=== PATIENT | male | born 1955 | race Caucasian/White ===

== ENCOUNTER 2018-09-11 05:59 | Emergency (ER) | payer OTHER ==
[~2018-09-11 05:59] MED LIST changes: -ATOR40TA24 PO; -ESCI10TA8 PO; -ISOS30TA54 PO; -LATA7.5D OU; -METO25TA93 PO; -PANT40TA65 PO; -VALP250C30 PO; -WARF5TAB23 PO
[2018-09-11] MEDS ORDERED: NS(*) 0.9% 1000 ML BAG 1,000 ML IV ONE ×2 (06:14→06:50)
[2018-09-11] MEDS ORDERED: DIPHTH/TETANUS/ACEL. PERTUSSIS IM ONE (06:15)
[2018-09-11] MEDS ORDERED: fentaNYL CITR 100 MCG/2 ML AMP IVP ONE ×2 (06:15→08:20)
[2018-09-11] MEDS ORDERED: KETAMINE HCL-NS 50 MG/5 ML SYR IVP ONE (06:20)
[2018-09-11] MEDS ORDERED: IOPAMIDOL 76% 100 ML INFUS BTL 100 ML ONE (06:32)
[2018-09-11 06:38] LABS: PLATELET COUNT, AUTOMATED 181 K/uL (150-450)
--- NOTE | 2018-09-11 06:46 | ER Report ---
History and Physical Time Seen By MD: 06:30 Hx. of Stated Complaint: patient had a fall down stairs around 2am, patient having lower back pain and neck pain. (JULIANNE KAY DO) HPI/ROS CHIEF COMPLAINT: Fall HISTORY OF PRESENT ILLNESS: Patient is a 63-year-old male here with complaints of fall around 2:00 this morning after having several alcoholic beverages. Patient complains of C-spine, mid low thoracic thoracic spine, lower lumbar back pain. Patient's reportedly heard him fall, helped him to a recliner then the patient proceeded to lay on the floor and then woke up his requesting EMS transport. Patient is neurovascularly intact at time of evaluation and does not have any obvious step offs. Patient does have a c-collar in place. Patient is alert and oriented times evaluation, received fentanyl 100 g prior to arrival. E fast negative REVIEW OF SYSTEMS: Constitutional: No fever, no chills. Eyes: No discharge. ENT: No sore throat. Cardiovascular: No chest pain, no palpitations. Respiratory: No cough, no shortness of breath. Gastrointestinal: No abdominal pain, no vomiting. Genitourinary: No hematuria. Musculoskeletal: Neck, mid back and low back pain Skin: No rashes. Neurological: No headache. (JULIANNE KAY DO) Allergies: Coded Allergies: duloxetine (Verified Allergy, Intermediate, 09/11/18) morphine (Verified Allergy, Intermediate, 11/20/13) Uncoded Allergies: ZOMAX (Allergy, Mild, NAUSEA VOMITING DIARRHEA, 12/27/07) Home Meds Reported Medications Warfarin Sodium (WARFARIN SODIUM) 5 Mg Tablet, 5 MG PO QDAY, TAB 09/11/18 Valproic Acid (DEPAKENE) 250 Mg Capsule, 250 MG PO Q12H, CAPSULE 09/11/18 Tramadol Hcl (TRAMADOL HCL) 50 Mg Tablet, 50 MG PO Q8H PRN for PAIN, TAB 09/11/18 Tizanidine Hcl (TIZANIDINE HCL) 2 Mg Tablet, 2 MG PO TID 09/11/18 Pantoprazole Sodium (PANTOPRAZOLE SODIUM) 40 Mg Tablet.dr, 40 MG PO QDAY, TAB.SR 09/11/18 Metoprolol Tartrate (METOPROLOL TARTRATE) 25 Mg Tablet, 1 TAB PO QDAY, TAB 09/11/18 Latanoprost/Pf (Latanoprost 0.005% Eye Drop) 0.005 % Drops, 1 DROP OU QHS 09/11/18 Isosorbide Mononitrate (ISOSORBIDE MONONITRATE ER) 30 Mg Tab.er.24h, 30 MG PO QDAY 09/11/18 Escitalopram Oxalate (ESCITALOPRAM OXALATE) 10 Mg Tablet, 10 MG PO QDAY, TAB 09/11/18 Atorvastatin Calcium (LIPITOR) 40 Mg Tablet, 80 MG PO QHS, TAB 09/11/18 Discontinued Reported Medications Levetiracetam (KEPPRA) 1,000 Mg Tablet, 1000 MG PO BID, TAB 11/20/13 Sumatriptan Succinate (IMITREX) 50 Mg Tablet, 50 MG PO ONCE 11/20/13 Metoprolol Succinate (METOPROLOL SUCCINATE) 50 Mg Tab.er.24h, 1 TAB PO QDAY TAKE ONE TABLET BY MOUTH EVERY DAY 10/08/12 Warfarin Sod (Coumadin (Or Equiv)) 5 Mg Tab, 5 MG PO QDAY, 0 Refills TAKE 7.5 MG ON SUN/SUN/SUN AND TAKE 5 MG THE REST OF THE WEEK 08/27/10 Oxycodone/Acetaminophen (OXYCODONE/ACETAMINOPHEN 5MG/325 MG) 5 Mg/325 Mg Tab, 1 - 2 TAB PO Q6H, 0 Refills EVERY 6 HOURS NEEDED FOR PAIN 08/27/10 Valproic Acid (Valproic Acid) 250 Mg Capsule, 250 MG PO, 0 Refills 08/27/10 Tramadol Hcl (Ultram) 50 Mg Tab, 50 MG PO QID PRN 08/27/10 Nitroglycerin (Nitrostat) 0.3 Mg Subl, 0.4 MG PO PRN 08/27/10 Metformin Hcl (Glucophage) 500 Mg Tablet, 250 MG PO BID, 0 Refills RESTART 10/1108/27/10 Tizanidine Hcl (Zanaflex) 2 Mg Tablet, 2 MG PO TID, 0 Refills 08/27/10 Albuterol (Proventil Inhaler) 17 Gm Inh, 2 PUFF INH PRN, 0 Refills 1-2 PUFFS 08/27/10 [Bipap At Noc] No Conflict Check, 0 Refills 08/27/10 [Oxygen] (Oxygen) No Conflict Check, 2 L, 0 Refills USSES O2 AT 2 LITERS PRN DURING THE DAY. USES O2 WITH BIPAP AT HS 08/27/10 Aspirin (Aspirin Ec) 81 Mg Tablet.dr, 81 MG PO DAILY, 0 Refills 08/27/10 Formoterol Fumarate (Foradil) 12 Mcg Inha, 0 INH Q12H, 0 Refills INHALE 1 PUFF 08/27/10 Pantoprazole Sod (Protonix) 40 Mg Tabec, 40 MG PO QDAY, 0 Refills 08/27/10 Isosorbide Dinitrate (Isordil) 10 Mg Tab, 20 MG PO TID, 0 Refills 08/27/10 Albuterol/Ipratropium (Combivent) 14.7 Gm Inh, 0 INH QID, 0 Refills 2 PUFFS 08/27/10 Discontinued Scripts Tramadol Hcl (TRAMADOL HCL) 50 Mg Tablet, 50-100 MG PO Q4-6H, #20 MG TAKE ONE TO TWO TABLETS BY MOUTH EVERY FOUR TO SIX HOURS NEEDED Prov:RAVEN MCKINNEY DO 11/20/13 Hx Smoking: Yes Smoking Status: Current: Every Day Smoker Hx Substance Use Disorder: No Hx Alcohol Use: No (JULIANNE KAY DO) Constitutional Vital Sign - Last 24 Hours 09/11/18 09/11/18 09/11/18 09/11/18 06:04 06:14 06:25 06:29 Temp 98.3 Pulse 131 102 96 Resp 15 10 12 B/P (MAP) 139/90 Pulse Ox 88 88 93 O2 Delivery Room Air O2 Flow Rate 2.0 09/11/18 09/11/18 09/11/18 09/11/18 06:30 07:00 07:05 07:20 Pulse 98 100 Resp 19 16 B/P (MAP) 142/93 (109) 147/90 (109) Pulse Ox 92 89 (CECY REYNOSO MD) Physical Exam General Appearance: The patient is alert, has no immediate need for airway protection and no signs of toxicity. Uncomfortable appearing, pain with movement Eyes: Pupils equal and round no pallor or injection. ENT, Mouth: Mucous membranes are moist. Respiratory: There are no retractions, lungs are clear to auscultation. Cardiovascular: Regular rate and rhythm. Gastrointestinal: Abdomen is soft and non tender, no masses, bowel sounds normal. Neurological: No focal neurological deficits, alert and oriented Skin: Warm and dry, no rashes. Musculoskeletal: Midline C-spine tenderness, mid thoracic tenderness on palpation without step off, lower lumbar midline tenderness without bony deformity Extremities are nontender, nonswollen and have full range of motion. DIFFERENTIAL DIAGNOSIS: After history and physical exam differential diagnosis was considered for fracture, contusion, sprain, dislocation, intra-abdominal bleed (KAYJULIANNE HAIRSTON S DO) Medical Decision Making Data Points Result Diagram: 09/11/18 0624 09/11/18 0624 Laboratory Hematology Test 09/11/18 06:24 09/11/18 07:32 Red Blood Count 5.34 M/uL (4.00-5.60) Mean Corpuscular Volume 82.4 fL (80.0-96.0) Mean Corpuscular Hemoglobin 26.8 pg (26.0-33.0) Mean Corpuscular Hemoglobin Concent 32.6 g/dL (32.0-36.0) Red Cell Distribution Width 15.4 % (11.5-14.5) Mean Platelet Volume 9.7 fL (7.2-11.1) Neutrophils (%) (Auto) 91.8 % (39.4-72.5) Lymphocytes (%) (Auto) 4.0 % (17.6-49.6) Monocytes (%) (Auto) 4.0 % (4.1-12.4) Eosinophils (%) (Auto) 0.0 % (0.4-6.7) Basophils (%) (Auto) 0.2 % (0.3-1.4) Nucleated RBC Relative Count (auto) 0.1 /100WBC Neutrophils # (Auto) 16.6 K/uL (2.0-7.4) Lymphocytes # (Auto) 0.7 K/uL (1.3-3.6) Monocytes # (Auto) 0.7 K/uL (0.3-1.0) Eosinophils # (Auto) 0.0 K/uL (0.0-0.5) Basophils # (Auto) 0.0 K/uL (0.0-0.1) Nucleated RBC Absolute Count (auto) 0.02 K/uL Prothrombin Time 28.3 seconds (12.0-14.4) Prothromb Time International Ratio 2.59 Activated Partial Thromboplast Time 37 seconds (23-35) Sodium Level 140 mmol/L (137-145) Potassium Level 3.8 mmol/L (3.5-5.0) Chloride Level 105 mmol/L (98-107) Carbon Dioxide Level 19 mmol/L (22-30) Blood Urea Nitrogen 13 mg/dl (9-21) Creatinine 0.90 mg/dl (0.66-1.25) Glomerular Filtration Rate Calc > 60.0 Random Glucose 118 mg/dl (75-110) Lactate 4.6 mmol/L (0.7-2.1) Calcium Level 9.0 mg/dl (8.4-10.2) Total Bilirubin 0.2 mg/dl (0.2-1.3) Aspartate Amino Transf (AST/SGOT) 39 U/L (0-35) Alanine Aminotransferase (ALT/SGPT) 39 U/L (0-56) Alkaline Phosphatase 90 U/L (0-126) Total Creatine Kinase 229 U/L (55-170) Total Protein 6.9 g/dl (6.3-8.2) Albumin 4.2 g/dl (3.5-5.0) Lipase 90 U/L (23-300) Serum Alcohol 114 mg/dl Urine Color Yellow Urine Clarity Clear Urine pH 5.0 pH (4.8-9.5) Urine Specific [place] 1.033 Urine Protein Negative mg/dL (NEGATIVE) Urine Glucose (UA) Negative mg/dL (NEGATIVE) Urine Ketones 20 mg/dL (NEGATIVE) Urine Blood Negative (NEGATIVE) Urine Nitrite Negative (NEGATIVE) Urine Bilirubin Negative (NEGATIVE) Urine Urobilinogen Negative mg/dL (0.2-1.9) Urine Leukocyte Esterase Negative (NEGATIVE) Urine RBC 1 /HPF (0-2/HPF) Urine WBC 1 /HPF (0-5/HPF) Urine Squamous Epithelial Cells None /LPF (</=FEW) Urine Bacteria Negative /HPF (NONE-FEW) Urine Mucus Few /HPF (NONE-FEW) Chemistry Test 09/11/18 06:24 09/11/18 07:32 White Blood Count 18.1 k/uL (4.5-11.0) Red Blood Count 5.34 M/uL (4.00-5.60) Hemoglobin 14.3 g/dL (14.0-18.0) Hematocrit 44.0 % (42.0-52.0) Mean Corpuscular Volume 82.4 fL (80.0-96.0) Mean Corpuscular Hemoglobin 26.8 pg (26.0-33.0) Mean Corpuscular Hemoglobin Concent 32.6 g/dL (32.0-36.0) Red Cell Distribution Width 15.4 % (11.5-14.5) Platelet Count 181 K/uL (150-450) Mean Platelet Volume 9.7 fL (7.2-11.1) Neutrophils (%) (Auto) 91.8 % (39.4-72.5) Lymphocytes (%) (Auto) 4.0 % (17.6-49.6) Monocytes (%) (Auto) 4.0 % (4.1-12.4) Eosinophils (%) (Auto) 0.0 % (0.4-6.7) Basophils (%) (Auto) 0.2 % (0.3-1.4) Nucleated RBC Relative Count (auto) 0.1 /100WBC Neutrophils # (Auto) 16.6 K/uL (2.0-7.4) Lymphocytes # (Auto) 0.7 K/uL (1.3-3.6) Monocytes # (Auto) 0.7 K/uL (0.3-1.0) Eosinophils # (Auto) 0.0 K/uL (0.0-0.5) Basophils # (Auto) 0.0 K/uL (0.0-0.1) Nucleated RBC Absolute Count (auto) 0.02 K/uL Prothrombin Time 28.3 seconds (12.0-14.4) Prothromb Time International Ratio 2.59 Activated Partial Thromboplast Time 37 seconds (23-35) Glomerular Filtration Rate Calc > 60.0 Lactate 4.6 mmol/L (0.7-2.1) Calcium Level 9.0 mg/dl (8.4-10.2) Total Bilirubin 0.2 mg/dl (0.2-1.3) Aspartate Amino Transf (AST/SGOT) 39 U/L (0-35) Alanine Aminotransferase (ALT/SGPT) 39 U/L (0-56) Alkaline Phosphatase 90 U/L (0-126) Total Creatine Kinase 229 U/L (55-170) Total Protein 6.9 g/dl (6.3-8.2) Albumin 4.2 g/dl (3.5-5.0) Lipase 90 U/L (23-300) Serum Alcohol 114 mg/dl Urine Color Yellow Urine Clarity Clear Urine pH 5.0 pH (4.8-9.5) Urine Specific [place] 1.033 Urine Protein Negative mg/dL (NEGATIVE) Urine Glucose (UA) Negative mg/dL (NEGATIVE) Urine Ketones 20 mg/dL (NEGATIVE) Urine Blood Negative (NEGATIVE) Urine Nitrite Negative (NEGATIVE) Urine Bilirubin Negative (NEGATIVE) Urine Urobilinogen Negative mg/dL (0.2-1.9) Urine Leukocyte Esterase Negative (NEGATIVE) Urine RBC 1 /HPF (0-2/HPF) Urine WBC 1 /HPF (0-5/HPF) Urine Squamous Epithelial Cells None /LPF (</=FEW) Urine Bacteria Negative /HPF (NONE-FEW) Urine Mucus Few /HPF (NONE-FEW) Coagulation Test 09/11/18 06:24 Prothrombin Time 28.3 seconds Prothromb Time International Ratio 2.59 Activated Partial Thromboplast Time 37 seconds Toxicology Test 09/11/18 06:24 09/11/18 07:32 Serum Alcohol 114 mg/dl Urinalysis Test 09/11/18 07:32 Urine Color Yellow Urine Clarity Clear Urine pH 5.0 pH (4.8-9.5) Urine Specific [place] 1.033 Urine Protein Negative mg/dL (NEGATIVE) Urine Glucose (UA) Negative mg/dL (NEGATIVE) Urine Ketones 20 mg/dL (NEGATIVE) Urine Blood Negative (NEGATIVE) Urine Nitrite Negative (NEGATIVE) Urine Bilirubin Negative (NEGATIVE) Urine Urobilinogen Negative mg/dL (0.2-1.9) Urine Leukocyte Esterase Negative (NEGATIVE) Urine RBC 1 /HPF (0-2/HPF) Urine WBC 1 /HPF (0-5/HPF) Urine Squamous Epithelial Cells None /LPF (</=FEW) Urine Bacteria Negative /HPF (NONE-FEW) Urine Mucus Few /HPF (NONE-FEW) (CECY REYNOSO MD) ED Course/Re-evaluation ED Course Patient is a 63-year-old male here with complaints of neck, mid and lower back pain without step off. Patient reportedly fell down a flight of steps at approximately 2:00 this morning and later requested EMS transport due to severity of pain. Patient was given 100 g of fentanyl prior to arrival, 50 mg of ketamine due to difficulty breathing with narcotic administration. Patient is neurovascularly intact at time of evaluation, alert and oriented. EFast was negative at time of evaluation. CT imaging of the head, C-spine, chest abdomen pelvis was ordered. Patient was signed out to Dr. Reynoso at shift change Decision to Disposition Date: September 11, 2018 Decision to Disposition Time: 07:00 (JULIANNE KAY DO) ED Course E course medical decision making 61-year-old male who was intoxicated and fell down several flights of stairs last evening signed over to me by Dr. Kay evaluation of the CT of the chest abdomen and pelvis demonstrated a burst fracture T12 with significant 9 mm retropulsion into the spinal canal area multiple posterior fractures C-spine demonstrated a anterior epidural space consistent with a probable epidural hematoma he is on Coumadin this is being treated with FFP and vitamin K. Patient is maintaining C-spine precaution and full spinal precautions as well be transferred to a higher level care received by trauma surgery patient resting comfortably pain medications administered wrist was labs to demonstrate elevated lactate and elevated white count CPK CONSISTENT with post traumatic type injury a patient resting comfortable time of transfer stabilization complete Decision to Disposition Date: September 11, 2018 Decision to Disposition Time: 07:51 (CECY REYNOSO MD) Depart Departure Latest Vital Signs Vital Signs Date Time Temp Pulse Resp B/P (MAP) Pulse Ox O2 Delivery O2 Flow Rate FiO2 09/11/18 07:20 100 16 89 09/11/18 07:00 147/90 (109) 09/11/18 06:25 2.0 09/11/18 06:04 98.3 Room Air (CECY REYNOSO MD) Impression: Primary Impression: Burst fracture of fourth thoracic vertebra Condition: Improved Disposition: [facility] TO [facility] JULIANNE KAY DO September 11, 2018 06:46 CECY REYNOSO MD September 11, 2018 07:52
[2018-09-11 06:48] LABS: INR 2.59
--- NOTE | 2018-09-11 07:08 | EKG ---
FACILITY: [facility] PATIENT NAME: PERCY MUELLER : [id number] MR: [id number] V: [id number] EXAM DATE: ORDERING PHYSICIAN: JULIANNE LAY TECHNOLOGIST: YAYA Vital Reason : TRAUMA Blood Pressure : / mmHG Vent. Rate : 102 BPM Atrial Rate : 102 BPM P-R Int : 214 ms QRS Dur : 106 ms QT Int : 348 ms P-R-T Axes : 056 -58 047 degrees QTc Int : 453 ms Sinus tachycardia with 1st degree AV block Left axis deviation Nonspecific interventricular conduction delay Abnormal ECG Confirmed by MAYANK GILLETTE ([id number]) on 09/11/2018 10:49:22 AM Referred By: T Confirmed By:MAYANK GILLETTE
[2018-09-11] MEDS ORDERED: PANT40TA65 PO (07:20)
[2018-09-11] MEDS ORDERED: TRAM-420 PO (07:20)
[2018-09-11] MEDS ORDERED: METO25TA93 PO (07:20)
[2018-09-11] MEDS ORDERED: VALP250C30 PO (07:20)
[2018-09-11] MEDS ORDERED: WARF5TAB23 PO (07:20)
[2018-09-11] MEDS ORDERED: LATA7.5D OU (07:20)
[2018-09-11] MEDS ORDERED: ATOR40TA24 PO (07:20)
[2018-09-11] MEDS ORDERED: TIZA-1 PO (07:20)
[2018-09-11] MEDS ORDERED: ISOS30TA54 PO (07:20)
[2018-09-11] MEDS ORDERED: ESCI10TA8 PO (07:20)
--- NOTE | 2018-09-11 07:24 | RADIOLOGY IMAGING REPORT ---
[place] [facility] [place] Raman Pagan : 1955 MR: [id number] V: [id number] EXAM DATE: [id number] ORDERING PHYSICIAN: JULIANNE LAY TECHNOLOGIST: Location: [facility] Patient: Raman Pagan : 1955 Visit/Account:[id number] Date of Sevice: 09/11/2018 EXAMINATION: CT head without IV contrast HISTORY: Trauma, fall, back pain. COMPARISON: None. TECHNIQUE: Contiguous axial images were obtained from the skull base to the vertex without intraven ous contrast. Sagittal and coronal reformatted images are also submitted. One of the following dose optimization techniques was utilized in the performance of this exam: Autom ated exposure control; adjustment of the mA and/or kV according to the patient's size; or use of an i terative reconstruction technique. Specific details can be referenced in the facility's radiology C T exam operational policy. FINDINGS: Brain volume: Normal. Ventricles: Normal. Acute ischemic changes: None. Hemorrhage: No acute intracranial hemorrhage. Masses/edema: None. Wiseman-white: Negative. White matter: Normal. Vessels: Calcified plaque of both carotid siphons. Extra-axial: Negative. Calvarium/scalp: No acute fracture. Skull base/visualized face: Negative. Visualized sinuses/orbits: Negative. IMPRESSION: No acute fracture, hemorrhage or intracranial mass lesion. No CT evidence of acute infarct. Report Dictated By: Barb Nunez MD at 09/11/2018 7:17 AM Report E-Signed By: Barb Nunez MD at 09/11/2018 7:19 AM WSN:[id number]
--- NOTE | 2018-09-11 07:43 | RADIOLOGY IMAGING REPORT ---
FACILITY: [facility] PATIENT NAME: Raman Pagan : 1955 MR: [id number] V: [id number] EXAM DATE: [id number] ORDERING PHYSICIAN: JULIANNE LAY TECHNOLOGIST: Location: [facility] [place] Patient: Raman Pagan : 1955 Visit/Account:[id number] Date of Sevice: 09/11/2018 EXAMINATION: CT chest with IV contrast CT abdomen with IV contrast CT pelvis with IV contrast HISTORY: Trauma, fall, back pain. COMPARISON: CTA chest, abdomen and pelvis from 10/08/2012. TECHNIQUE: Axial images were taken through the chest, abdomen and pelvis during injection of nonion ic iodinated intravenous contrast. Sagittal and coronal reformatted images are also submitted. CONTRAST: 75 mL of IV [id number]. One of the following dose optimization techniques was utilized in the performance of this exam: Autom ated exposure control; adjustment of the mA and/or kV according to the patient's size; or use of an i terative reconstruction technique. Specific details can be referenced in the facility's radiology C T exam operational policy. FINDINGS: CT CHEST: Lungs/pleura: Mild emphysema, worst in the upper lobes. Mild bibasilar dependent atelectasis. Mediastinum/jensen: Negative. Heart/pericardium: Negative. Vessels: Moderate atherosclerotic calcifications of the thoracic aorta and coronary arteries. Musculoskeletal/body wall: Negative. Lymph nodes: Negative. Lower neck: Negative. CT ABDOMEN AND PELVIS: Liver/biliary: Previous cholecystectomy. The common bile duct remains distended, measuring 17 mm at t he leanna hepatis and tapering distally, similar to previous exam. There is mild central intrahepatic biliary ductal dilatation. Pancreas: Negative. Spleen: Small splenule. Adrenal glands: Negative. Kidneys: Negative. Pelvic structures: Negative. Bowel: Small sliding hiatal hernia. Bowel loops are normal in caliber. Peritoneum/retroperitoneum/mesenteries: Negative. Vessels: Vascular structures are patent. Moderate atherosclerotic calcifications. Musculoskeletal/body wall: There is an acute burst fracture of T12 with 50% anterior height loss and 9 mm retropulsion. This fracture causes moderate to severe central canal stenosis. There are also acu te nondisplaced fractures of the left T12 lamina, the right T12 transverse process, and possibly the left T12 transverse process. Partial bony fusion across the SI joints. Small fat-containing umbilical hernia. Lymph nodes: Negative. IMPRESSION: 1. Acute burst fracture of T12 with 50% anterior height loss and 9 mm retropulsion, causing moderate to severe spinal stenosis. Noncontrast thoracic spine MRI is recommended for further evaluation. 2. Acute, nondisplaced fractures of the left T12 lamina, the right T12 transverse process, and possib ly the left T12 transverse process. 3. No acute intrathoracic, abdominal or pelvic injury. 4. Previous cholecystectomy. Dilated common bile duct and mild intrahepatic biliary ductal dilatation is unchanged, and may be related to cholecystectomy state. These findings were discussed with Dr. Davis at 09/11/2018 7:32 AM. Report Dictated By: Barb Nunez MD at 09/11/2018 7:24 AM Report E-Signed By: Barb Nunez MD at 09/11/2018 7:39 AM WSN:[id number]
--- NOTE | 2018-09-11 07:43 | RADIOLOGY IMAGING REPORT ---
FACILITY: [facility] PATIENT NAME: Raman Pagan : 1955 MR: [id number] V: [id number] EXAM DATE: [id number] ORDERING PHYSICIAN: JULIANNE LAY TECHNOLOGIST: Location: [facility] [place] Patient: Raman Pagan : 1955 Visit/Account:[id number] Date of Sevice: 09/11/2018 EXAMINATION: CT cervical spine without IV contrast HISTORY: Trauma, fall, back pain. COMPARISON: None. TECHNIQUE: Axial images were obtained from the skull base through the upper thoracic spine without I V contrast administration. Coronal and sagittal reformatted images were obtained from the axial [facility] e data. One of the following dose optimization techniques was utilized in the performance of this exam: Autom ated exposure control; adjustment of the mA and/or kV according to the patient's size; or use of an i terative reconstruction technique. Specific details can be referenced in the facility's radiology C T exam operational policy. FINDINGS: Alignment: Normal. Cranio-cervical junction: Mild joint space narrowing and bony spurring of the atlantoaxial joint. Vertebral bodies: There is no acute fracture visualized. There is prominent soft tissue density in th e anterior epidural space, posterior to the C2 vertebral body, with a thin stripe of fat density visu alized. Posterior elements: Negative. Hardware: None. Disc spaces: Mild disc space narrowing and endplate sclerosis is worst at C4-5. Soft tissues: Atherosclerotic calcifications of the great vessels and carotid bulbs. Visualized upper chest: Negative. IMPRESSION: 1. No acute fracture of the cervical spine. 2. Prominent soft tissue density along the posterior margin of the C2 vertebral body with a thin stri pe of fat visible. This could be due to ligamentous injury or epidural hematoma. Noncontrast cervical spine MRI is recommended for further evaluation. These findings were discussed with Dr. Davis at 09/11/2018 7:32 AM. Report Dictated By: Barb Nunez MD at 09/11/2018 7:19 AM Report E-Signed By: Barb Nunez MD at 09/11/2018 7:39 AM WSN:[id number]
[2018-09-11] MEDS ORDERED: PHYTONADIONE 5 MG TAB PO ONE (07:45)
[2018-09-11] MEDS ORDERED: PHYTONADIONE (*) 10 MG/ML AMP 10 MG in NS(*) 0.9% 50 ML BAG 50 ML IVPB ONE (08:00)
[2018-09-11] MEDS ORDERED: NS(*) 0.9% 500 ML BAG 500 ML IV ONE (08:10)
[2018-09-11 10:00] VITALS: BP 155/98
== END 2018-09-11 10:17 | disposition short-term general hospital (02) ==
LOC: ER 06:49
DX: S22.041A Stable burst fracture of fourth thoracic vertebra, initial encounter for closed fracture (principal)
CPT/HCPCS: 70450; 71260; 72125; 74177; 80305; 80320; 81001; 82550; 83605; 83690; 85025; 85610; 85730; 86900; 86901; 93005; 96361; 96365; 96375; 99285; J3010; J3430; J3490; J7030; J7040; J7050; P9059; Q9967; 82040; 82247; 82310; 82374; 82435; 82565; 82947; 84075; 84132; 84155; 84295; 84450; 84460; 84520

== ENCOUNTER → 2018-09-11 | Outpatient (CLI) | payer OTHER ==
[~2018-09-11] MED LIST: ALB17R INH; ASMANEXPT IH; ASPI-1441 PO; ASPI-1471 PO; ATOR40TA24 PO; CEP500 PO; CIT20 PO; COM14R INH; DICL1TAB52 PO; DULO60CA51 PO; ESCI10TA8 PO; EZE10 PO; FOR12R INH; GAB300 PO; GABA-1 PO; HYD2 PO; HYDR-2952 PO; ISO10 PO; ISOS30TA54 PO; LAMO25TA64 PO; LATA7.5D OU; LEV15R INH; LEVE100047 PO; LOR5 PO; MET50 PO; METF-1 PO; METO25TA93 PO; METO50TA19 PO; MODA200T39 PO; NIA100 PO; NIA500 PO; NIT3 PO; NIT4 SL; OXYGEN; PAN40 PO; PANT40TA65 PO; PER PO; PRAZ5CAP15 PO; PRE200PT PO; SIM10 PO; SIMV-1 PO; SUMA50TA34 PO; TIZA-1 PO; TRA50 PO; TRAM-420 PO; VALP250C30 PO; VALP250C32 PO; WAR5 PO; WAR75 PO; WARF-12 PO; WARF4TAB47 PO; WARF5TAB23 PO; WARF5VIA3 IV; XOPENEX INH; ZOLP6.2530 PO; [UNRECOGNIZED DRUG - CODE] PO; [UNRECOGNIZED DRUG - REMARK]
== END ==
LOC: AMB 09:54
PROVIDERS: ATTEND Nurse Practitioner
DX: S32.051A Stable burst fracture of fifth lumbar vertebra, initial encounter for closed fracture (principal)
CPT/HCPCS: A0425; A0433

== ENCOUNTER → 2018-09-11 | Outpatient (CLI) | payer OTHER | LOC: AMB 05:34 | PROVIDERS: ATTEND Nurse Practitioner | DX: M54.5 Low back pain (principal); F10.120 Alcohol abuse with intoxication, uncomplicated; W10.9XXA Fall (on) (from) unspecified stairs and steps, initial encounter | CPT/HCPCS: A0425; A0427 ==